=== PATIENT | female | born 1945 | race Caucasian/White ===

== ENCOUNTER 2016-09-10 10:15 | Emergency (ER) | payer OTHER ==
[~2016-09-10] VITALS: Ht 157.5 cm; Wt 56.2 kg
[2016-09-10 10:26] VITALS: BP_SYST 131
--- NOTE | 2016-09-10 10:33 | NUR ---
Patient to ER bed 5 to gown for evaluation. Side rails up. Report given to Judy NEUMANN.
--- NOTE | 2016-09-10 10:39 | NUR ---
ER MD Francois at bedside for evaluation
--- NOTE | 2016-09-10 10:40 | NUR ---
Patient to ER C/O severe migraine headache for the past 3 days. Patient states the pain is concentrated middle of forehead and behind the eyes. Also C/O dizziness & weakness. AAOx4, unlabored rbeathing, no signs of acute distress.
[2016-09-10] MEDS ORDERED: PROCHLORPERAZINE EDISYLATE 10 MG/2 ML VIAL IM ONE (10:45)
[2016-09-10] MEDS ORDERED: DIPHENHYDRAMINE INJ 50 MG/ML VIAL IM ONE (11:00)
--- NOTE | 2016-09-10 11:24 | NUR ---
Patient calm, resting, no signs of acute distress.
[2016-09-10 12:18] VITALS: BP_SYST 124
--- NOTE | 2016-09-10 12:18 | NUR ---
Patient given written and verbal discharge instructions and verbalizes understanding. ER MD Francois discussed with patient the results and treatment provided. Patient in stable condition. ID arm band removed. Rx of zofran, tylenol given. Patient educated on pain management and to follow up with PMD. Pain Scale 0/10. Opportunity for questions provided and answered.
== END 2016-09-10 12:18 | disposition home or self-care (01) ==
LOC: SED 10:15
DX: G43.909 Migraine, unspecified, not intractable, without status migrainosus (principal); E11.9 Type 2 diabetes mellitus without complications; I10 Essential (primary) hypertension
CPT/HCPCS: 96372; 99284; J0780; J1200